=== PATIENT | female | born 1995 | race Caucasian/White ===

== ENCOUNTER 2021-04-24 19:04 | Emergency (ER) | payer OTHER ==
[~2021-04-24] VITALS: Ht 160 cm; Wt 106.6 kg
--- NOTE | 2021-04-24 19:30 | NUR ---
BIBS C/O CHEST TIGHTNESS, SOB SUDDEN ONSET AT AROUND 1830. PT ALERT AND ORIENTED X3. AMBULATORY SATTING AT 100% ON ROOM AIR. PT PLACED ON MONITOR AND IN A GOWN.
--- NOTE | 2021-04-24 19:46 | NUR ---
BLOOD COLLECTED AND SENT TO LAB
[2021-04-24 19:49] LABS: BASOPHILS % (AUTO) 0.5 % (0.0-2.0); EOSINOPHILS % (AUTO) 2.8 % (0.0-6.0); HEMATOCRIT 40 % (33-45); HEMOGLOBIN 13.6 g/dL (11.5-14.8); LYMPHOCYTES # (AUTO) 3.2 K/uL (0.8-4.8); LYMPHOCYTES % (AUTO) 35.1 % (20.0-44.0); MEAN CORPUSCULAR HGB CONC 34 g/dl (31.0-36.0); MEAN CORPUSCULAR VOLUME 85 fL (82-100); MONOCYTES # (AUTO) 0.6 K/uL (0.1-1.30); MONOCYTES % (AUTO) 6.5 % (2.0-12.0); NEUTROPHILS % (AUTO) 55.1 % (43.0-81.0); PLATELET COUNT (AUTO) 398 K/uL (150-450); WHITE BLOOD COUNT (AUTO) 9.1 K/uL (4.3-11.0)
[2021-04-24] MEDS ORDERED: LORAZEPAM 0.5 MG TABLET ONE (19:56)
[2021-04-24] MEDS ORDERED: LORAZEPAM 1 MG TABLET PO ONE (20:00)
[2021-04-24 20:03] LABS: CALCIUM, SERUM 8.9 mg/dL (8.5-10.1); CARBON DIOXIDE 24 mmol/L (21-32); CHLORIDE 104 mmol/L (98-107); GLUCOSE 92 mg/dL (74-106); POTASSIUM 3.6 mmol/L (3.5-5.1); SODIUM SERUM 140 mmol/L (136-145); UREA NITROGEN, BLOOD 13 mg/dL (7-18)
[2021-04-24 21:10] VITALS: BP 141/80
--- NOTE | 2021-04-24 21:10 | NUR ---
Patient discharged to home in stable condition. Written and verbal after care instructions given. Patient verbalizes understanding of instruction.
== END 2021-04-24 21:10 | disposition home or self-care (01) ==
LOC: ER 19:08
DX: R07.89 Other chest pain (principal); F41.9 Anxiety disorder, unspecified; Z88.0 Allergy status to penicillin; Z88.1 Allergy status to other antibiotic agents; Z88.8 Allergy status to other drugs, medicaments and biological substances
CPT/HCPCS: 36415; 71045-TC; 80048-TC; 84484-TC; 84703-TC; 85025-TC